=== PATIENT | male | born 1980 | race Caucasian/White ===

== ENCOUNTER 2017-12-19 11:07 | Emergency (ER) | payer OTHER ==
--- NOTE | 2017-12-19 12:09 | C.PDOC ---
History Of Present Illness 37 yo male come in for evaluation of left elbow contusion sustained 2 days ago after sustained mechanical fall at home " landed onto my left elbow". Pt reports , pain is localized over left elbow/olecranon, worse with movement. Otherwise, pt denies obvious deformity, weakness, sensory or vascular deficits to left arm , denies skin changes. Ambulate to ED for evaluation, not in nay apparent distress. Time Seen by Provider: 12/19/17 11:29 Chief Complaint (Nursing): Upper Extremity Problem/Injury History Per: Patient Past Medical History Reviewed: Historical Data, Nursing Documentation, Vital Signs Vital Signs: Last Vital Signs Temp 97.8 F 12/19/17 11:18 Pulse 79 12/19/17 11:18 Resp 20 12/19/17 11:18 BP 135/78 12/19/17 11:18 Pulse Ox 97 12/19/17 12:15 - Medical History PMH: No Chronic Diseases Other Surgeries: Right forearm surgery Family History: States: Unknown Family Hx - Social History Hx Alcohol Use: No Hx Substance Use: No - Immunization History Hx Tetanus Toxoid Vaccination: No Hx Influenza Vaccination: No Hx Pneumococcal Vaccination: No Review Of Systems Except As Marked, All Systems Reviewed And Found Negative. Eyes: Negative for: Vision Change Gastrointestinal: Negative for: Nausea, Vomiting Genitourinary: Negative for: Incontinence Musculoskeletal: Positive for: Other (Left elbow pain) Skin: Negative for: Lesions, Bruising Neurological: Negative for: Weakness, Numbness Physical Exam - Physical Exam Appears: Well, Non-toxic, No Acute Distress Skin: Normal Color, Warm, No Ecchymosis Head: Atraumatic, Normacephalic Eye(s): bilateral: PERRL Neck: Normal ROM, Trachea Midline, No Midline Cervical Tenderness, No Paracervical Tenderness, No Step Off Deformity, Supple Chest: Symmetrical, No Deformity, No Tenderness Extremity: Normal ROM (with mild discomfort to left elbow extension due to pain) , Tenderness (mild over left olecranon), Capillary Refill (less than 2sec to left hand), No Deformity, No Swelling Neurological/Psych: Oriented x3, Normal Speech, Normal Motor, Normal Sensation, Normal Reflexes ED Course And Treatment O2 Sat by Pulse Oximetry: 97 Pulse Ox Interpretation: Normal - Other Rad Left elbow X-Ray: Interpreted by Me, Viewed By Me Interpretation: (+) avulsion left olecranon fx, likely old Progress Note: On re-evaluation, pt is afebrile, hemodynamicaly stable. Non- toxic. Ambulatory in ED with stable gait. head: AT/NC. Neck: Supple, (-) midline tendreness. Left elbow: exam c/w contusion to olecranon. FAROM, no neurovascular deficits , no deformity. Neuorlogicaly intact. Left xray review (+) avulsion fx to olecranon, likely old. Shay wrap applied to left elbow, sling applied to left arm. Pt advised and ref. to f/u with Ortho in2 -3 days for re-eavl. return if any enw changes. Disposition Counseled Patient/Family Regarding: Studies Performed, Diagnosis, Need For Followup, Rx Given - Disposition Referrals: Juwan Murphy III, MD [Staff Provider] - [facility] [Outside] Disposition: HOME/ ROUTINE Disposition Time: 12:06 Condition: STABLE Additional Instructions: [facility] Follow up with Orthopedist in 2-3 days for re-evaluation. return to ED if any worsening or new changes. Instructions: Elbow Fracture (DC) Forms: [facility] (French) - Clinical Impression Clinical Impression: Elbow fracture
[2017-12-19 12:36] VITALS: BP 121/84; PULSE 65; RESP 18; TEMP 98; O2SAT 96
--- NOTE | 2017-12-19 14:57 | RAD ---
PROCEDURE: Radiographs of the left elbow. HISTORY: injury COMPARISON: No prior. FINDINGS: BONES: Evidence of bulb olecranon injury likely the sequela of prior trauma. JOINTS: Normal. No osteoarthritis. SOFT TISSUES: Normal. JOINT EFFUSION: None. OTHER FINDINGS: None IMPRESSION: No acute findings related to/accounting for the clinical presentation.
== END 2017-12-19 12:36 | disposition home or self-care (01) ==
LOC: C.ER 11:07
DX: S52.022A Displaced fracture of olecranon process without intraarticular extension of left ulna, initial encounter for closed fracture (principal); W18.30XA Fall on same level, unspecified, initial encounter